=== PATIENT | female | born 1995 | race Caucasian/White ===

== ENCOUNTER 2023-10-03 09:58 | Emergency (ER) | payer MEDICAID, OTHER ==
[~2023-10-03] VITALS: Ht 170.2 cm; Wt 90.7 kg
[~2023-10-03 09:58] MED LIST: CODE118S PO; HYDR-5122 PO
[2023-10-03 10:10] VITALS: BP 145/94; PULSE 86; RESP 20; TEMP 97.3; O2SAT 100
[2023-10-03 10:46] VITALS: PULSE 75; RESP 25; O2SAT 95
[2023-10-03] MEDS: IPRATROPIUM 0.02% 0.5 MG/2.5 ML NEBU INH ONE (10:46)
[2023-10-03] MEDS: ALBUTEROL 0.083% 2.5 MG/3 ML NEBU INH ONE (10:46)
[2023-10-03 11:00] VITALS: TEMP 97.3
[2023-10-03 11:27] LABS: BASOPHILS # (AUTO) 0.2 K/uL (0.00-0.22); BASOPHILS % (AUTO) 1.4 % (0.0-2.0); EOSINOPHILS # (AUTO) 0.3 K/uL (0-0.4); EOSINOPHILS % (AUTO) 2.6 % (0.0-4.0); HEMATOCRIT 43.5 % (36-48); HEMOGLOBIN 14.8 g/dL (12.0-16.0); LYMPHOCYTES # (AUTO) 1.9 K/uL (2.5-16.5); LYMPHOCYTES % (AUTO) 14.8 % (20.5-51.1); MEAN CORPUSCULAR HEMOGLOBIN 29 pg (27-31); MEAN CORPUSCULAR HGB CONC 34 g/dL (33-37); MEAN CORPUSCULAR VOLUME 84.4 fL (80-94); MONOCYTES # (AUTO) 0.8 K/uL (0.8-1.0); MONOCYTES % (AUTO) 6.4 % (1.7-9.3); NEUTROPHILS # (AUTO) 9.4 K/uL (1.8-7.7); NEUTROPHILS % (AUTO) 74.8 % (42.2-75.2); PLATELET COUNT (AUTO) 270 K/uL (140-450); RED BLOOD CELL COUNT(AUTO) 5.15 MIL/uL (4.20-5.40); RED CELL DISTRIBUTION WIDTH 14.5 % (11.6-13.7); WHITE BLOOD COUNT (AUTO) 12.5 K/uL (4.8-10.8)
[2023-10-03] MEDS: KETOROLAC 30 MG/ML VIAL IVP ONE (11:31)
[2023-10-03 11:32] LABS: APPEARANCE,URINE CLEAR (CLEAR); BILIRUBIN,URINE NEGATIVE (NEGATIVE); BLOOD, URINE NEGATIVE (NEGATIVE); COLOR,URINE YELLOW (YELLOW); LEUKOCYTE ESTERASE ,URINE NEGATIVE (NEGATIVE); NITRITE, URINE NEGATIVE (NEGATIVE); PROTEIN,URINE NEGATIVE (NEGATIVE); UGLUCOSE NEGATIVE (NEGATIVE); UROBILINOGEN,URINE 0.2 EU/dL (0.2 - 1)
[2023-10-03 12:00] VITALS: BP 129/89; PULSE 78; RESP 16; O2SAT 97
[2023-10-03 12:02] LABS: CALCIUM 9.8 mg/dL (8.5-10.1); CARBON DIOXIDE 22.7 mmol/L (21-32); CREATININE 0.8 mg/dL (0.6-1.3); POTASSIUM 3.7 mmol/L (3.5-5.1)
[2023-10-03] MEDS ORDERED: NAPR-1704 PO (14:48)
[2023-10-03] MEDS ORDERED: ALBU0.0912 IH (14:48)
[2023-10-03] MEDS ORDERED: PRED20TA5 PO (14:48)
== END 2023-10-03 15:00 | disposition home or self-care (01) ==
LOC: MED 09:58
DX: K76.0 Fatty (change of) liver, not elsewhere classified (principal); J45.901 Unspecified asthma with (acute) exacerbation; F12.90 Cannabis use, unspecified, uncomplicated; Z79.1 Long term (current) use of non-steroidal anti-inflammatories (NSAID); Z79.899 Other long term (current) drug therapy
CPT/HCPCS: 36415; 74176; 76856; 80048; 81003; 81025; 85025; 93976; 94640; 96374; 99285; J1885; J7613; J7644; Q0092